=== PATIENT | male | born 1960 | race Caucasian/White ===

== ENCOUNTER → 2018-09-10 | Outpatient (CLI) | payer BC ==
[~2018-09-10] MED LIST: OMEP-10 PO; PNT40TEC PO
--- NOTE | 2018-09-10 14:15 | Diagnostic Imaging Report ---
PROCEDURE: US Bilateral lower extremity arterial. TECHNIQUE: Multiple real-time grayscale images are obtained through both lower extremity arterial systems with color Doppler imaging and color Doppler spectral analysis. INDICATION: Peripheral arterial disease. FINDINGS: There are triphasic waveforms throughout both lower extremity arterial systems. Velocities appear to be fairly symmetric bilaterally. No high-grade stenosis or occlusion is identified. No fluid collections or masses are seen. IMPRESSION: Unremarkable bilateral lower extremity arterial Doppler. Dictated by: Dictated on workstation # [id number]
== END ==
LOC: RAD 09:41
DX: I73.9 Peripheral vascular disease, unspecified (principal)
CPT/HCPCS: 93925